=== PATIENT | female | born 1980 | race Caucasian/White ===

== ENCOUNTER → 2020-01-05 17:27 | Outpatient (CLI) | payer BC, SELFPAY ==
--- NOTE | ~2020-01-05 | XR_ITS ---
EXAMINATION: XR sinus min 3V INDICATION: Right frontal migraines TECHNIQUE: Five views of the paranasal sinuses are obtained. COMPARISON: None available FINDINGS: The left frontal sinuses are hypoplastic relative to the right. There is otherwise normal p neumatization of the paranasal sinuses. No sinus opacification is identified. The nasal septum is mid line. The facial bones appear normal. IMPRESSION: 1. No definite sinus disease however sensitivity of radiographs is low. Consider CT of the sinuses if there is high clinical suspicion for sinus disease. Reviewed, dictated and finalized at location A. IMPRESSION: 1. No definite sinus disease however sensitivity of radiographs is low. Conside r CT of the sinuses if there is high clinical suspicion for sinus disease.
== END ==
PROVIDERS: PCP Family Medicine; Visit Provider Family Medicine
DX: R51.9 Headache, unspecified (principal)
CPT/HCPCS: 70220

== ENCOUNTER 2022-07-20 16:31 | Outpatient (CLI) | payer BC, SELFPAY ==
--- NOTE | ~2022-07-20 | MM_ITS ---
EXAMINATION: MM screening anmol BI w prabhakar HISTORY: Screening mammogram. Baseline examination. TECHNIQUE: Craniocaudal and mediolateral oblique 3-D tomosynthesis images were obtained and synthetic 2-D images were generated. CAD analysis was subm itted and interpreted. COMPARISON: No prior mammogram is available for comparison at this institution. BREAST PARENCHYMAL COMPOSITION: The breasts are almost entirely fatty. FINDINGS: There is no evidence of suspicious mass, calcification, or architectural distortion to sugg est malignancy in either breast. There has been no suspicious interval change. IMPRESSION: 1. No mammographic evidence of malignancy. 2. Recommend routine screening mammography in one year. BI-RADS Category 1: Negative Reviewed, dictated and finalized at location B.
== END 2022-07-20 16:32 | disposition home or self-care (01) ==
PROVIDERS: PCP Family Medicine; Visit Provider Family Medicine
DX: Z12.31 Encounter for screening mammogram for malignant neoplasm of breast (principal)
CPT/HCPCS: 77063; 77067

== ENCOUNTER 2023-12-20 12:53 | Outpatient (CLI) | payer BC, SELFPAY ==
--- NOTE | ~2023-12-20 | MM_ITS ---
EXAMINATION: MM diagnostic anmol BI w prabhakar HISTORY: Left breast pain TECHNIQUE: 3-D tomosynthesis images of the bilateral breasts were performed and synthetic 2-D images were generated. CAD analysis was submitted and interpreted. COMPARISON: 07/20/2022 BREAST PARENCHYMAL COMPOSITION:Not Dense. The breasts are almost entirely fatty FINDINGS: Parenchymal pattern of both breasts is unchanged. No mass lesion or distortion seen. No isa picious microcalcifications. IMPRESSION: No mammographic evidence for malignancy. BI-RADS Category 1: Negative Reviewed, dictated and finalized at location .
== END 2023-12-20 12:54 | disposition home or self-care (01) ==
PROVIDERS: PCP Family Medicine; Visit Provider Family Medicine
DX: N64.4 Mastodynia (principal)
CPT/HCPCS: 77062; 77066; G0279